=== PATIENT | male | born 1990 | race Caucasian/White ===

== ENCOUNTER 2017-01-21 23:19 | Emergency (ER) | payer BC ==
[~2017-01-21] VITALS: Ht 188 cm; Wt 110.0 kg
[2017-01-21 23:21] VITALS: BP 185/93; PULSE 86; RESP 20; TEMP 98.9; O2SAT 100
[2017-01-21 23:57] VITALS: BP 181/70; PULSE 64; RESP 16; O2SAT 96
[2017-01-22] MEDS ORDERED: NITROGLYCERIN 0.4 MG SL 25 TABS/BTL SL PRN (00:15)
[2017-01-22] MEDS ORDERED: ASPIRIN 81 MG CHEW TAB CHEW ONE (00:15)
[2017-01-22] MEDS ORDERED: SODIUM CHLOR 0.9% 1000 ML INJ 1,000 ML IV ONE ×2 (00:15→01:45)
[2017-01-22] MEDS ORDERED: NITROGLYCERIN 2% OINT 1 GM PACKET TOPICAL ONE (00:15)
[2017-01-22 00:31] LABS: AUTOMATED NEUTROPHIL # 3.3 TH/MM3 (1.8-7.7); BASOPHIL % 0.3 % (0.0-2.0); EOSINOPHIL # 0.3 TH/MM3 (0-0.4); HEMATOCRIT 42.7 % (39.0-51.0); HEMO FLAGS DIFF FINAL; LYMPH % 36.8 % (9.0-44.0); LYMPHOCYTE # 2.5 TH/MM3 (1.0-4.8); MEAN CELL VOLUME 82.2 FL (80.0-100.0); MEAN CORPUSCULAR HEMOGLOBIN 26.9 PG (27.0-34.0); MEAN CORPUSCULAR HGB CONC 32.8 % (32.0-36.0); MONO % 10.9 % (0.0-8.0); PLATELET COUNT 360 TH/MM3 (150-450); WHITE BLOOD COUNT 6.9 TH/MM3 (4.0-11.0)
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
[2017-01-22 00:40] LABS: ALT (GPT) 516 U/L (12-78); ANION GAP 5 MEQ/L (5-15); AST (GOT) 268 U/L (15-37); BICARBONATE 31.5 MEQ/L (21.0-32.0); BLOOD UREA NITROGEN 19 MG/DL (7-18); CHLORIDE 101 MEQ/L (98-107); GLOMERULAR FILTRATION RATE 59 ML/MIN (>89); MAGNESIUM 2.1 MG/DL (1.5-2.5); POTASSIUM 3.3 MEQ/L (3.5-5.1); SODIUM (NA) 137 MEQ/L (136-145)
--- NOTE | 2017-01-22 00:43 | RADRPT ---
EXAM DATE/TIME: 01/22/2017 00:23 [facility] COMPARISON: No previous studies available for comparison. INDICATIONS : Numbness and tingling to left leg x 1 day. MEDICAL HISTORY : NSTEMI SURGICAL HISTORY : None. ENCOUNTER: Initial ACUITY: 1 day PAIN SCORE: 6/10 LOCATION: Bilateral chest FINDINGS: A single view of the chest demonstrates the lungs to be symmetrically aerated without evidence of mas s, infiltrate or effusion. The cardiomediastinal contours are unremarkable. Osseous structures are intact. CONCLUSION: Normal examination. Luis Miguel France MD on January 22, 2017 at 0:42 Board Certified Radiologist. This report was verified electronically.
[2017-01-22 00:46] LABS: APTT (PATIENT) 28.3 SEC (24.3-30.1); PROTHROMBIN TIME - PATIENT 10.7 SEC (9.8-11.6)
[2017-01-22 00:54] LABS: ALKALINE PHOSPHATASE 91 U/L (45-117); CREATINE KINASE 1137 U/L (39-308); TOTAL BILIRUBIN ADULT 0.4 MG/DL (0.2-1.0)
[2017-01-22 01:06] LABS: CKMB 10.7 NG/ML (0.5-3.6)
[2017-01-22 01:37] LABS: BLOOD, URINE NEG (NEG); COMMENT (UR) CULT NOT INDICATED; CULTURE IF INDICATED CULT NOT INDICATED; GLUCOSE,URINE NEG (NEG); KETONE, URINE NEG (NEG); NITRITE,URINE NEG (NEG); PH, URINE 5.5 (5.0-8.5); URINE COLOR YELLOW (YELLW/STRAW)
[2017-01-22] MEDS ORDERED: POTASSIUM CHLORIDE 20 MEQ CONTROLLED RELEASE TAB PO ONE (01:45)
[2017-01-22] MEDS ORDERED: LEVO750T3 PO (02:13)
[2017-01-22] MEDS ORDERED: METO25TA3 PO (02:13)
[2017-01-22] MEDS ORDERED: CLIN1CAP6 PO (02:13)
--- NOTE | 2017-01-22 11:02 | EKG ---
Date Performed: 01/22/2017 Time Performed: 00:08:04 PTAGE: 26 years EKG: Sinus rhythm WITH SINUS ARRHYTHMIA NONSPECIFIC T-WAVE ABNORMALITY BORDERLINE ECG NO PREVIOUS TRACING DOCTOR: Jarrett Frazier Interpretating Date/Time 01/22/2017 10:58:50
== END 2017-01-22 03:21 | disposition home or self-care (01) ==
LOC: NEPE 23:19
DX: R07.9 Chest pain, unspecified (principal); R94.31 Abnormal electrocardiogram [ECG] [EKG]; R74.8 Abnormal levels of other serum enzymes; B19.20 Unspecified viral hepatitis C without hepatic coma; M62.82 Rhabdomyolysis; F14.90 Cocaine use, unspecified, uncomplicated; I10 Essential (primary) hypertension; F17.210 Nicotine dependence, cigarettes, uncomplicated; Z88.0 Allergy status to penicillin
CPT/HCPCS: 71010; 80053; 80307; 81001; 82550; 82552; 83735; 83880; 84443; 84484; 85025; 85379; 85610; 85730; 93005; 96360; 99285; J7030

== ENCOUNTER 2017-08-20 13:59 | Emergency (ER) | payer OTHER ==
[~2017-08-20] VITALS: Ht 188 cm; Wt 102.0 kg
[~2017-08-20 13:59] MED LIST: CLIN300C5 PO; LEVO750T3 PO; METO25TA3 PO
[2017-08-20 14:06] VITALS: BP 135/77; PULSE 100; RESP 16; TEMP 97.9; O2SAT 92
[2017-08-20] MEDS ORDERED: SODIUM CHLOR 0.9% 1000 ML INJ 1,000 ML IV ONE (14:27)
[2017-08-20] MEDS ORDERED: SODIUM CHLORIDE 0.9% FLUSH 10 ML FLUSH IVF PRN (14:30)
[2017-08-20] MEDS ORDERED: NALOXONE HCL 0.4 MG/ML AMP IV PUSH ONE (14:30)
[2017-08-20 15:25] LABS: BASOPHIL % 0.3 % (0.0-2.0); EOSINOPHIL # 0.3 TH/MM3 (0-0.4); EOSINOPHIL % 1.9 % (0.0-4.0); HEMATOCRIT 42.3 % (39.0-51.0); LYMPHOCYTE # 1.4 TH/MM3 (1.0-4.8); MEAN CELL VOLUME 82.6 FL (80.0-100.0); MEAN CORPUSCULAR HEMOGLOBIN 27.3 PG (27.0-34.0); MEAN CORPUSCULAR HGB CONC 33.1 % (32.0-36.0); MEAN PLATELET VOLUME 8.2 FL (7.0-11.0); MONO % 6.6 % (0.0-8.0); MONOCYTE # 0.9 TH/MM3 (0-0.9); NEUT % 81.2 % (16.0-70.0); PLATELET COUNT 221 TH/MM3 (150-450); RED BLOOD COUNT 5.13 MIL/MM3 (4.50-5.90); RED CELL DISTRIBUTION WIDTH 15.9 % (11.6-17.2); WHITE BLOOD COUNT 13.6 TH/MM3 (4.0-11.0)
[2017-08-20 15:34] VITALS: O2SAT 97
[2017-08-20 15:36] VITALS: BP 138/78; PULSE 98; RESP 18; O2SAT 97
[2017-08-20 15:38] LABS: ALBUMIN 3.4 GM/DL (3.4-5.0); ALT (GPT) 177 U/L (12-78); AST (GOT) 85 U/L (15-37); BICARBONATE 32.4 MEQ/L (21.0-32.0); BLOOD UREA NITROGEN 13 MG/DL (7-18); CALCIUM 8.6 MG/DL (8.5-10.1); CHLORIDE 101 MEQ/L (98-107); CREATININE 1.37 MG/DL (0.60-1.30); GLOMERULAR FILTRATION RATE 63 ML/MIN (>89); GLUCOSE,RANDOM 141 MG/DL (74-106); SODIUM (NA) 138 MEQ/L (136-145)
--- NOTE | 2017-08-20 15:39 | PD ---
HPI Chief Complaint: OD/ Ingestion Time Seen by Provider: 14:07 Travel History International Travel<30 days: No Contact w/Intl Traveler<30days: No Traveled to known affect area: No History of Present Illness HPI pt Is a 27 years old make and arrives by EMS. He was Found asleep in the bathroom somewhat cyanotic. He was given Narcan and awoke. His O2 sat was in the 80s initially. In the ER he states he used IV heroin. He reports intermittent success with attempts at stopping IV drug abuse. No suicidal or homicidal ideation. Onset sudden. Timing constant but increasing in severity. PFSH Past Medical History ?: Not Past Surgical History Other Surgery: Yes (LEFT HAND ) Social History Alcohol Use: Yes (occasional) Tobacco Use: Yes (1/2 PACK A DAY ) Substance Use: Yes (HERION) Allergies-Medications (Allergen,Severity, Reaction): Coded Allergies: penicillin G (Unverified Allergy, Severe, Anaphylaxis, 04/03/17) Reported Meds & Prescriptions Reported Meds & Active Scripts Active Narcan Nasal Primrose (Naloxone HCl) 4 Mg/Act Primrose 4 Mg NASAL ONCE PRN Contents of 1 nasal spray as a single dose; may repeat every 2 to 3 minutes in alternating nostrils until medical assistance becomes available. Review of Systems Except as stated in HPI: all other systems reviewed are Neg General / Constitutional: No: Fever Physical Exam Narrative GENERAL: 27-year-old male well-nourished well-developed no acute distress, slightly sleepy although cooperative and awake and interactive SKIN: Warm and dry. HEAD: Atraumatic. Normocephalic. EYES: Pupils equal and round. No scleral icterus. No injection or drainage. ENT: No nasal bleeding or discharge. Mucous membranes pink and moist. NECK: Trachea midline. No JVD. CARDIOVASCULAR: Regular rate and rhythm. RESPIRATORY: No accessory muscle use. Clear to auscultation. Breath sounds equal bilaterally. GASTROINTESTINAL: Abdomen soft, non-tender, nondistended. Hepatic and splenic margins not palpable. MUSCULOSKELETAL: Extremities without clubbing, cyanosis, or edema. No obvious deformities. NEUROLOGICAL: Awake and alert. No obvious cranial nerve deficits. Motor grossly within normal limits. Five out of 5 muscle strength in the arms and legs. Normal speech. PSYCHIATRIC: Appropriate mood and affect; insight and judgment normal. Data Data Last Documented VS Vital Signs Date Time Temp Pulse Resp B/P (MAP) Pulse Ox O2 Delivery O2 Flow Rate FiO2 08/20/17 16:32 08/20/17 15:36 98 18 97 Nasal Cannula 3.00 08/20/17 14:06 97.9 Vital Signs Date Time Temp Pulse Resp B/P (MAP) Pulse Ox O2 Delivery O2 Flow Rate FiO2 08/20/17 16:32 08/20/17 15:36 98 18 138/78 (98) 97 Nasal Cannula 3.00 08/20/17 15:34 97 Nasal Cannula 3.00 08/20/17 14:06 97.9 100 16 135/77 (96) 92 Orders Orders Complete Blood Count With Diff (08/20/17 14:27) Comprehensive Metabolic Panel (08/20/17 14:27) Iv Access Insert/Monitor (08/20/17 14:27) Ecg Monitoring (08/20/17 14:27) Oximetry (08/20/17 14:27) Psych Screen (08/20/17 14:27) Naloxone Inj (Narcan Inj) (08/20/17 14:30) Sodium Chloride 0.9% Flush (Ns Flush) (08/20/17 14:30) Sodium Chlor 0.9% 1000 Ml Inj (Ns 1000 M (08/20/17 14:27) Alcohol (Ethanol) (08/20/17 14:27) Ed Discharge Order (08/20/17 16:23) Labs Laboratory Tests Test 08/20/17 14:45 White Blood Count 13.6 TH/MM3 Red Blood Count 5.13 MIL/MM3 Hemoglobin 14.0 GM/DL Hematocrit 42.3 % Mean Corpuscular Volume 82.6 FL Mean Corpuscular Hemoglobin 27.3 PG Mean Corpuscular Hemoglobin Concent 33.1 % Red Cell Distribution Width 15.9 % Platelet Count 221 TH/MM3 Mean Platelet Volume 8.2 FL Neutrophils (%) (Auto) 81.2 % Lymphocytes (%) (Auto) 10.0 % Monocytes (%) (Auto) 6.6 % Eosinophils (%) (Auto) 1.9 % Basophils (%) (Auto) 0.3 % Neutrophils # (Auto) 11.0 TH/MM3 Lymphocytes # (Auto) 1.4 TH/MM3 Monocytes # (Auto) 0.9 TH/MM3 Eosinophils # (Auto) 0.3 TH/MM3 Basophils # (Auto) 0.0 TH/MM3 CBC Comment DIFF FINAL Differential Comment Blood Urea Nitrogen 13 MG/DL Creatinine 1.37 MG/DL Random Glucose 141 MG/DL Total Protein 7.2 GM/DL Albumin 3.4 GM/DL Calcium Level 8.6 MG/DL Alkaline Phosphatase 168 U/L Aspartate Amino Transf (AST/SGOT) 85 U/L Alanine Aminotransferase (ALT/SGPT) 177 U/L Total Bilirubin 0.4 MG/DL Sodium Level 138 MEQ/L Potassium Level 3.8 MEQ/L Chloride Level 101 MEQ/L Carbon Dioxide Level 32.4 MEQ/L Anion Gap 5 MEQ/L Estimat Glomerular Filtration Rate 63 ML/MIN Ethyl Alcohol Level LESS THAN 3 MG/DL [facility] Medical Decision Making Medical Screen Exam Complete: Yes Emergency Medical Condition: Yes Medical Record Reviewed: Yes Differential Diagnosis IVDU OD, heroine overdose, PSA, SI Narrative Course CBC & BMP Diagram 08/20/17 14:45 Total Protein 7.2, Albumin 3.4, Calcium Level 8.6, Alkaline Phosphatase 168 H, Aspartate Amino Transf (AST/SGOT) 85 H, Alanine Aminotransferase (ALT/SGPT) 177 H, Total Bilirubin 0.4 Pt observed here for 2 hours. VS have remained normal. NO narcan required in ED Pt counseled in some length and demonstrates insight into risks of his current behavior Pt ok for discharge home. Diagnosis Primary Impression: Intravenous drug abuse Additional Impression: Overdose Qualified Codes: T50.901A - Poisoning by unspecified drugs, medicaments and biological substances, accidental (unintentional), initial encounter Referrals: [facility]Other Pt SpecificInfo: Prescription(s) given Scripts Naloxone Nasal Primrose (Narcan Nasal Primrose) 4 Mg/Act Primrose 4 MG NASAL ONCE Y for OPIOID OVERDOSE, #1 SPRAY 0 Refills Contents of 1 nasal spray as a single dose; may repeat every 2 to 3 minutes in alternating nostrils until medical assistance becomes available. Prov: Ian Peoples MD 08/20/17 Disposition: 01 DISCHARGE HOME Condition: Stable Ian Peoples MD Aug 20, 2017 15:38
[2017-08-20 15:40] LABS: ALKALINE PHOSPHATASE 168 U/L (45-117); TOTAL BILIRUBIN ADULT 0.4 MG/DL (0.2-1.0); TOTAL PROTEIN 7.2 GM/DL (6.4-8.2)
[2017-08-20] MEDS ORDERED: NALO1SPR NASAL (16:24)
== END 2017-08-20 16:45 | disposition home or self-care (01) ==
LOC: NEPD 13:59
DX: T40.1X1A Poisoning by heroin, accidental (unintentional), initial encounter (principal); F17.200 Nicotine dependence, unspecified, uncomplicated; Z88.0 Allergy status to penicillin; Z79.899 Other long term (current) drug therapy
CPT/HCPCS: 80053; 80307; 85025; 96374; 99282; J2310; J7030

== ENCOUNTER 2017-08-23 16:31 | Emergency (ER) | payer BC ==
[~2017-08-23] VITALS: Ht 188 cm; Wt 104.0 kg
[~2017-08-23 16:31] MED LIST changes: -CLIN300C5 PO; -LEVO750T3 PO; -METO25TA3 PO; +NALO1SPR NASAL
[2017-08-23 16:39] VITALS: BP 161/69; PULSE 82; RESP 16; TEMP 97.6; O2SAT 97
--- NOTE | 2017-08-23 17:22 | PD ---
HPI Chief Complaint: Skin Problem Time Seen by Provider: 16:51 Travel History International Travel<30 days: No Contact w/Intl Traveler<30days: No Traveled to known affect area: No History of Present Illness HPI 27-year-old right-hand dominant male with history of IVDA presents to the ED for evaluation of one week history of multiple small wounds with localized redness. The patient states that he first noticed it on the left foot, between the fourth and fifth toes. He states he was treating with antifungals with no improvement of symptoms. He then states that last week he noticed 2 small wounds opening on his right index finger. 2 days ago he noted redness around the hairline that has become "hard to the touch." He denies fever, chills, nausea, vomiting, history of MRSA. He denies squeezing the area. [facility] Past Medical History Medical History: Denies Significant Hx Past Surgical History Other Surgery: Yes (LEFT HAND ) Social History Alcohol Use: Yes (occasional) Tobacco Use: Yes (1/2 PACK A DAY ) Substance Use: Yes (HEROIN) Allergies-Medications (Allergen,Severity, Reaction): Coded Allergies: penicillin G (Unverified Allergy, Severe, Anaphylaxis, 08/23/17) Reported Meds & Prescriptions Reported Meds & Active Scripts Active Bactrim DS (Sulfamethoxazole-Trimethoprim) 800-160 Mg Tab 1 Tab PO BID Lotrimin AF Topical Powder (Miconazole Topical Powder) 2 % Pow 1 Applic TOPICAL BID 14 Days Narcan Nasal [place] (Naloxone HCl) 4 Mg/Act [place] 4 Mg NASAL ONCE PRN Contents of 1 nasal spray as a single dose; may repeat every 2 to 3 minutes in alternating nostrils until medical assistance becomes available. Review of Systems Except as stated in HPI: all other systems reviewed are Neg Physical Exam Narrative GENERAL: Well-nourished, well-developed white male in no acute distress. SKIN: Focused skin assessment warm/dry. Left foot: Desquamated skin between the fourth and fifth digits. 2 subcentimeter crusts with out signs of infection. Right hand: 2 subcentimeter crusts on the dorsal surface of the right index finger with localized erythema. Posterior hairline: Multiple areas of erythema consistent with folliculitis. There is an indurated area in the hairline of the left posterior neck which measures about 1 cm in diameter no fluctuance, pointing or drainage. There is a zone of inflammation around it but no lymphangitis. HEAD: Normocephalic. EYES: No scleral icterus. No injection or drainage. NECK: Supple, trachea midline. No JVD or lymphadenopathy. CARDIOVASCULAR: Regular rate and rhythm without murmurs, gallops, or rubs. RESPIRATORY: Breath sounds equal bilaterally. No accessory muscle use. GASTROINTESTINAL: Abdomen soft, non-tender, nondistended. MUSCULOSKELETAL: No cyanosis, or edema. FOCUSED LEFT LOWER EXTREMITY EXAM: 2+ DP pulse. Patient retains full, active, painless ROM of the digits of the foot. Neurovascularly intact distally. FOCUSED RIGHT UPPER EXTREMITY EXAM: 2+ radial pulse. Patient retains full, active, painless ROM of the index finger. Strong finger to thumb opposition. Neurovascularly intact distally. BACK: Nontender without obvious deformity. No CVA tenderness. Data Data Last Documented VS Vital Signs Date Time Temp Pulse Resp B/P (MAP) Pulse Ox O2 Delivery O2 Flow Rate FiO2 08/23/17 16:39 97.6 82 16 161/69 (99) 97 Orders Orders Ed Discharge Order (08/23/17 17:27) [facility] Medical Decision Making Medical Screen Exam Complete: Yes Emergency Medical Condition: Yes Differential Diagnosis Tinea pedis versus trench foot versus folliculitis versus abscess versus cellulitis versus other Narrative Course 27-year-old right-hand dominant male with history of IVDA presents to the ED for evaluation of one week history of multiple small wounds with localized redness. The patient states that he first noticed it on the left foot, between the fourth and fifth toes. He states he was treating with antifungals with no improvement of symptoms. He then states that last week he noticed 2 small wounds opening on his right index finger. 2 days ago he noted redness around the hairline that has become "hard to the touch." Vitals reviewed. Physical exam reveals tinea pedis of the fourth and fifth digit with secondary infection , likely staph. Also suspect 2 small abscesses of the posterior hairline, no fluctuance noted. Will treat for tinea pedis and secondary infection with Bactrim DS and miconazole powder. Patient is instructed to take every antibiotic until every pill is gone, keep the foot clean and dry, return for worsening symptoms. He indicated understanding of the instructions and is agreeable to the care plan. He is stable and discharged home. Diagnosis Primary Impression: Tinea pedis of left foot Additional Impressions: Folliculitis Abscess Referrals: [facility] Patient Instructions: Abscess (ED), General Instructions, Tinea Pedis (DC) Additional Instructions: Rest, hydrate. Keep the affected foot clean and dry. Change socks multiple times during the day. Pat the area dry after showering and expose it to air as much as possible. Use miconazole powder as prescribed. Warm compresses or hot showers on the back of the neck will help to open the area of abscess. Do not squeeze that area as it can drive the infection deeper. Take all antibiotics as they're prescribed until every pill is gone. Follow-up with the [facility]. Return to the ED for worsening symptoms or any urgent or emergent medical condition. Med/Other Pt SpecificInfo: Prescription(s) given Scripts Sulfamethoxazole-Trimethoprim (Bactrim DS) 800-160 Mg Tab 1 TAB PO BID for Infection, #14 TAB 0 Refills Prov: Merrill Cooper MD 08/23/17 Miconazole Topical Powder (Lotrimin AF Topical Powder) 2 % Pow 1 APPLIC TOPICAL BID for Fungal Infection for 14 Days, CAN 0 Refills Prov: Merrill Cooper MD 08/23/17 Disposition: 01 DISCHARGE HOME Condition: Stable Kerrie Claros Aug 23, 2017 17:22
[2017-08-23] MEDS ORDERED: MICO1POW7 TOPICAL (17:26)
[2017-08-23] MEDS ORDERED: BACT800T5 PO (17:26)
== END 2017-08-23 17:40 | disposition home or self-care (01) ==
LOC: PHEFT 16:31
DX: B35.3 Tinea pedis (principal); L73.9 Follicular disorder, unspecified; L02.612 Cutaneous abscess of left foot; F17.200 Nicotine dependence, unspecified, uncomplicated; Z88.0 Allergy status to penicillin; Z79.899 Other long term (current) drug therapy
CPT/HCPCS: 99284

== ENCOUNTER 2017-09-04 00:08 | Emergency (ER) | payer BC ==
[~2017-09-04] VITALS: Ht 188 cm; Wt 102.8 kg
[~2017-09-04 00:08] MED LIST changes: +BACT800T5 PO; +MICO1POW7 TOPICAL
[2017-09-04 00:14] VITALS: BP 169/72; PULSE 81; RESP 20; TEMP 98.9; O2SAT 99
[2017-09-04] MEDS ORDERED: SULFAMETHOXAZOLE-TRIMETHOPRIM DS 800-160 MG TAB PO ONE (00:45)
[2017-09-04] MEDS ORDERED: CLINDAMYCIN 150 MG CAP PO ONE (00:45)
[2017-09-04] MEDS ORDERED: CLIN150C14 PO (00:50)
[2017-09-04] MEDS ORDERED: BACT800T5 PO (00:50)
[2017-09-04] MEDS ORDERED: MUPI2%T TOPICAL (00:50)
--- NOTE | 2017-09-04 00:54 | PD ---
HPI . Lump cyst Chief Complaint: Lump, Cyst, Hernia Time Seen by Provider: 00:54 Travel History International Travel<30 days: No Contact w/Intl Traveler<30days: No Traveled to known affect area: No History of Present Illness HPI 27-year-old male with cluster of firm indurated follicles at the base of the neck on the left. Patient has been trying to express drainage from the sites. Patient rates his pain 6/10 in intensity. Patient is noted symptoms developing over the last 5 days. Patient's had no fever no chills. Patient is not diabetic. Patient has used ibuprofen 800 mg 2 doses over the past few days for symptom relief. Due to persistence he is very for all that this will spread or get worse therefore finally decided to come to the emergency room. Patient denies prior history of MRSA infection. [facility] Past Medical History Narrative Medical Left hand surgery; alcohol use tobacco use substance use; nursing notes reviewed Past Surgical History Other Surgery: Yes (LEFT HAND ) Social History Alcohol Use: Yes (occasional) Tobacco Use: Yes (1/2 PACK A DAY ) Substance Use: Yes (HEROIN) Allergies-Medications (Allergen,Severity, Reaction): Coded Allergies: penicillin G (Verified Allergy, Severe, Anaphylaxis, 09/04/17) Reported Meds & Prescriptions Reported Meds & Active Scripts Active Bactroban Topical (Mupirocin) 22 Gm Cream 1 Applic TOPICAL BID Clindamycin (Clindamycin HCl) 150 Mg Cap 300 Mg PO Q6H 7 Days Bactrim DS (Sulfamethoxazole-Trimethoprim) 800-160 Mg Tab 1 Tab PO BID Bactrim DS (Sulfamethoxazole-Trimethoprim) 800-160 Mg Tab 1 Tab PO BID Lotrimin AF Topical Powder (Miconazole Topical Powder) 2 % Pow 1 Applic TOPICAL BID 14 Days Narcan Nasal [place] (Naloxone HCl) 4 Mg/Act [place] 4 Mg NASAL ONCE PRN Contents of 1 nasal spray as a single dose; may repeat every 2 to 3 minutes in alternating nostrils until medical assistance becomes available. Review of Systems Except as stated in HPI: all other systems reviewed are Neg General / Constitutional: No: Fever, Chills HENT: No: Congestion Cardiovascular: No: Chest Pain or Discomfort Respiratory: No: Shortness of Breath Gastrointestinal: No: Nausea, Vomiting, Abdominal Pain Musculoskeletal: No: Myalgias, Arthralgias Skin: Positive Rash, Positive Lumps Neurologic: No: Weakness Psychiatric: Positive: Substance Abuse, No: Anxiety Hematologic/Lymphatic: Positive: Lymph Node Enlargement Physical Exam Narrative GENERAL: Well-developed well-nourished male in no acute distress respiratory distress SKIN: Warm and dry. Multiple pinpoint pustules at hair follicles sites over the posterior lower scalp where patient shaves his head. HEAD: Normocephalic. EYES: No scleral icterus. No injection or drainage. NECK: Supple, trachea midline. No JVD or lymphadenopathy. Attention left posterior neck area of firm nonfluctuant induration 5 cm x 2.5 cm with multiple pinpoint pustules and central area of excoriation without area of fluctuance or pointing, tenderness to palpation. Posterior cervical chain lymphadenopathy. No decreased range of motion of neck on rotation flexion or extension. No meningismus. Data Data Last Documented VS Vital Signs Date Time Temp Pulse Resp B/P (MAP) Pulse Ox O2 Delivery O2 Flow Rate FiO2 09/04/17 00:14 98.9 81 20 169/72 (104) 99 Orders Orders Sulfamet-Trimeth Ds 800-160 Mg (Bactrim (09/04/17 00:45) Clindamycin (Cleocin) (09/04/17 00:45) Ed Discharge Order (09/04/17 00:54) MDM Medical Decision Making Medical Screen Exam Complete: Yes Emergency Medical Condition: Yes Medical Record Reviewed: Yes Differential Diagnosis Cellulitis, folliculitis, abscess, carbuncle, furuncle, hidradenitis suppurativa Narrative Course patient with cluster of pinpoint pustules without central or focal fluctuance stranded by firm induration; at this time patient is not a candidate for incision and drainage; patient will be given first dose of Bactrim and clindamycin as his after 12 AM and pharmacies are not open and then will receive a prescription for Bactroban clindamycin and Bactrim. Patient is encouraged to return 48 hours in order to hopefully this site will be amenable to incision and drainage. Diagnosis Primary Impression: Furuncle of neck Referrals: [facility] as needed Patient Instructions: General Instructions Additional Instructions: Complete course of antibiotic as prescribed Apply warm compresses intermittently do not apply hot compresses in order to avoid burning the skin May continue to use ibuprofen 800 mg as often as every 8 hours do not use this dose of medication any more frequently than every 8 hours May also use acetaminophen/Tylenol every 4-6 hours as needed for fever 100.4F or greater or for minor pain Return to the emergency department for reassessment and possible incision and drainage as needed 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
== END 2017-09-04 01:22 | disposition home or self-care (01) ==
LOC: PHED 00:08
DX: L02.12 Furuncle of neck (principal); F17.210 Nicotine dependence, cigarettes, uncomplicated
CPT/HCPCS: 99284

== ENCOUNTER 2017-10-28 11:11 | Emergency (ER) | payer SELFPAY ==
[~2017-10-28] VITALS: Ht 182.9 cm; Wt 80.0 kg
[~2017-10-28 11:11] MED LIST changes: +CLIN150C14 PO; +MUPI2%T TOPICAL
[2017-10-28 11:33] VITALS: BP 176/82; PULSE 123; RESP 26; TEMP 98.9; O2SAT 99
[2017-10-28] MEDS ORDERED: LORazepam 2 MG/ML VIAL IV PUSH ONE ×2 (11:45→12:00)
[2017-10-28] MEDS ORDERED: HALOPERIDOL LACTATE 5 MG/ML AMP IM ONE (11:45)
[2017-10-28] MEDS ORDERED: SODIUM CHLOR 0.9% 1000 ML INJ 1,000 ML IV ONE ×2 (12:00)
[2017-10-28 12:04] VITALS: BP 116/59; PULSE 112; RESP 20; O2SAT 99
[2017-10-28 12:11] LABS: AUTOMATED NEUTROPHIL # 4.7 TH/MM3 (1.8-7.7); BASOPHIL % 0.5 % (0.0-2.0); EOSINOPHIL # 0.2 TH/MM3 (0-0.4); EOSINOPHIL % 2.3 % (0.0-4.0); HEMATOCRIT 40.1 % (39.0-51.0); HEMOGLOBIN 13.4 GM/DL (13.0-17.0); LYMPH % 17.8 % (9.0-44.0); LYMPHOCYTE # 1.3 TH/MM3 (1.0-4.8); MEAN CELL VOLUME 80.5 FL (80.0-100.0); MEAN CORPUSCULAR HGB CONC 33.5 % (32.0-36.0); MEAN PLATELET VOLUME 8.2 FL (7.0-11.0); MONO % 12.4 % (0.0-8.0); MONOCYTE # 0.9 TH/MM3 (0-0.9); PLATELET COUNT 220 TH/MM3 (150-450); RED BLOOD COUNT 4.98 MIL/MM3 (4.50-5.90); RED CELL DISTRIBUTION WIDTH 14.7 % (11.6-17.2)
[2017-10-28 12:40] VITALS: BP 123/56; PULSE 78; RESP 18; O2SAT 99
[2017-10-28 12:42] LABS: ALBUMIN 4.1 GM/DL (3.4-5.0); AST (GOT) 72 U/L (15-37); BICARBONATE 25.8 MEQ/L (21.0-32.0); BLOOD UREA NITROGEN 18 MG/DL (7-18); CALCIUM 9.5 MG/DL (8.5-10.1); CHLORIDE 102 MEQ/L (98-107); CREATININE 1.61 MG/DL (0.60-1.30); GLOMERULAR FILTRATION RATE 53 ML/MIN (>89); GLUCOSE,RANDOM 114 MG/DL (74-106); SODIUM (NA) 139 MEQ/L (136-145)
[2017-10-28 12:43] LABS: ALT (GPT) 125 U/L (12-78)
[2017-10-28 12:45] LABS: ACETAMINOPHEN LESS THAN 2.0 MCG/ML (10.0-30.0); ALKALINE PHOSPHATASE 81 U/L (45-117); TOTAL BILIRUBIN ADULT 0.6 MG/DL (0.2-1.0); TOTAL PROTEIN 7.5 GM/DL (6.4-8.2)
--- NOTE | 2017-10-28 13:31 | PD ---
HPI Chief Complaint: OD/ Ingestion Time Seen by Provider: 11:33 Travel History International Travel<30 days: No Contact w/Intl Traveler<30days: No Traveled to known affect area: No History of Present Illness HPI 27-year-old male arrives to the ER as a [place]. The patient was found in a hotel room where he had locked the door and evidently destroyed the contents of the room. Forced entry was required in order to provide medical care. Initially the patient refused medical personnel to treat him. Evidently he reported first responders intended to harm him. In the ER he repeatedly states "I do not want to ." History is therefore limited. Upon arrival to the [facility] the patient required four-point locked restraints and chemical sedation. [facility] Past Medical History Medical History: Unable to Obtain ?: Not Past Surgical History Other Surgery: Yes (LEFT HAND ) Social History Alcohol Use: Yes (occasional) Tobacco Use: Yes (1/2 PACK A DAY ) Substance Use: Yes (HEROIN) Allergies-Medications (Allergen,Severity, Reaction): Coded Allergies: penicillin G (Verified Allergy, Severe, Anaphylaxis, 09/04/17) Reported Meds & Prescriptions Reported Meds & Active Scripts Active Review of Systems ROS Limitations: Intoxication, Altered Mental Status Physical Exam Narrative GENERAL: Agitated 27-year-old male well-nourished well-developed Vital Signs Date Time Temp Pulse Resp B/P (MAP) Pulse Ox O2 Delivery O2 Flow Rate FiO2 10/28/17 12:40 78 18 123/56 (78) 99 Room Air 10/28/17 12:04 112 20 116/59 (78) 99 Room Air 10/28/17 11:39 116 10/28/17 11:33 98.9 123 26 176/82 (113) 99 SKIN: Warm and dry. HEAD: Atraumatic. Normocephalic. EYES: Pupils equal and round. No scleral icterus. No injection or drainage. ENT: No nasal bleeding or discharge. Mucous membranes pink and moist. NECK: Trachea midline. No JVD. CARDIOVASCULAR: Tachycardia. Regular rhythm. RESPIRATORY: Breath sounds are clear. The patient is speaking in full sentences. GASTROINTESTINAL: Abdomen soft, non-tender, nondistended. Hepatic and splenic margins not palpable. MUSCULOSKELETAL: Extremities without clubbing, cyanosis, or edema. No obvious deformities. NEUROLOGICAL: Awake and alert. No obvious cranial nerve deficits. Motor grossly within normal limits. Five out of 5 muscle strength in the arms and legs. Normal speech. PSYCHIATRIC: Agitated. Paranoid. Combative. Data Data Last Documented VS Vital Signs Date Time Temp Pulse Resp B/P (MAP) Pulse Ox O2 Delivery O2 Flow Rate FiO2 10/28/17 13:32 50 18 124/58 (80) 99 Room Air 10/28/17 11:33 98.9 Orders Orders Complete Blood Count With Diff (10/28/17 11:34) Comprehensive Metabolic Panel (10/28/17 11:34) Oximetry (10/28/17 11:34) Iv Access Insert/Monitor (10/28/17 11:34) Ecg Monitoring (10/28/17 11:34) Oxygen Administration (10/28/17 11:34) Cath For Specimen (10/28/17 11:34) Psych Screen (10/28/17 11:34) Haloperidol Inj (Haldol Inj) (10/28/17 11:45) Lorazepam Inj (Ativan Inj) (10/28/17 11:45) Restraints Violent (10/28/17 11:34) Drug Screen, Random Urine (10/28/17 11:34) Alcohol (Ethanol) (10/28/17 11:34) Salicylates (Aspirin) (10/28/17 11:34) Tylenol (Acetaminophen) (10/28/17 11:34) Sodium Chlor 0.9% 1000 Ml Inj (Ns 1000 M (10/28/17 12:00) Sodium Chlor 0.9% 1000 Ml Inj (Ns 1000 M (10/28/17 12:00) Creatine Kinase (Cpk) (10/28/17 11:56) Lorazepam Inj (Ativan Inj) (10/28/17 12:00) CKMB (10/28/17 11:55) CKMB% (10/28/17 11:55) Labs Laboratory Tests Test 10/28/17 11:55 10/28/17 12:52 White Blood Count 7.0 TH/MM3 Red Blood Count 4.98 MIL/MM3 Hemoglobin 13.4 GM/DL Hematocrit 40.1 % Mean Corpuscular Volume 80.5 FL Mean Corpuscular Hemoglobin 27.0 PG Mean Corpuscular Hemoglobin Concent 33.5 % Red Cell Distribution Width 14.7 % Platelet Count 220 TH/MM3 Mean Platelet Volume 8.2 FL Neutrophils (%) (Auto) 67.0 % Lymphocytes (%) (Auto) 17.8 % Monocytes (%) (Auto) 12.4 % Eosinophils (%) (Auto) 2.3 % Basophils (%) (Auto) 0.5 % Neutrophils # (Auto) 4.7 TH/MM3 Lymphocytes # (Auto) 1.3 TH/MM3 Monocytes # (Auto) 0.9 TH/MM3 Eosinophils # (Auto) 0.2 TH/MM3 Basophils # (Auto) 0.0 TH/MM3 CBC Comment DIFF FINAL Differential Comment Blood Urea Nitrogen 18 MG/DL Creatinine 1.61 MG/DL Random Glucose 114 MG/DL Total Protein 7.5 GM/DL Albumin 4.1 GM/DL Calcium Level 9.5 MG/DL Alkaline Phosphatase 81 U/L Aspartate Amino Transf (AST/SGOT) 72 U/L Alanine Aminotransferase (ALT/SGPT) 125 U/L Total Bilirubin 0.6 MG/DL Sodium Level 139 MEQ/L Potassium Level 3.2 MEQ/L Chloride Level 102 MEQ/L Carbon Dioxide Level 25.8 MEQ/L Anion Gap 11 MEQ/L Estimat Glomerular Filtration Rate 53 ML/MIN Total Creatine Kinase 648 U/L Creatine Kinase MB 6.5 NG/ML Creatine Kinase MB % 1.0 % Salicylates Level LESS THAN 1.7 MG/DL Acetaminophen Level LESS THAN 2.0 MCG/ML Ethyl Alcohol Level LESS THAN 3 MG/DL Urine Opiates Screen POS Urine Barbiturates Screen NEG Urine Amphetamines Screen POS Urine Benzodiazepines Screen POS Urine Cocaine Screen POS Urine Cannabinoids Screen NEG MDM Medical Decision Making Medical Screen Exam Complete: Yes Emergency Medical Condition: Yes Medical Record Reviewed: Yes Differential Diagnosis Altered mental status/psychosis due to infection/environmental exposure/ metabolic abnormality, polypharmacy, alcohol abuse/intoxication, illicit or prescribed drug abuse, malingering/secondary gain, non-organic psychiatric disease Narrative Course CBC & BMP Diagram 10/28/17 11:55 Total Protein 7.5, Albumin 4.1, Calcium Level 9.5, Alkaline Phosphatase 81, Aspartate Amino Transf (AST/SGOT) 72 H, Alanine Aminotransferase (ALT/SGPT) 125 H, Total Bilirubin 0.6 2L NS transfused UTOX positive for opiates, amphetamines, cocaine and benzo Pt medically clear f or psychaitric evaluation Diagnosis Primary Impression: Cocaine use Additional Impressions: Opiate use Amphetamine abuse Benzodiazepine abuse Psychosis Qualified Codes: F20.9 - Schizophrenia, unspecified Hypokalemia Transaminitis Admitting Information Admitting Physician Requests: Observation Ian Peoples MD Oct 28, 2017 13:31
[2017-10-28 13:32] VITALS: BP 124/58; PULSE 50; RESP 18; O2SAT 99
[2017-10-28 16:39] VITALS: BP 132/62; PULSE 56; RESP 16; O2SAT 98
[2017-10-28 19:56] VITALS: BP 136/71; PULSE 66; RESP 16; TEMP 98.6; O2SAT 100
== END 2017-10-29 03:25 ==
LOC: NEPD 11:11 → NEPJ 10-29 03:25
DX: F14.90 Cocaine use, unspecified, uncomplicated (principal); F15.10 Other stimulant abuse, uncomplicated; F13.10 Sedative, hypnotic or anxiolytic abuse, uncomplicated; F17.200 Nicotine dependence, unspecified, uncomplicated; F20.9 Schizophrenia, unspecified; E87.6 Hypokalemia
CPT/HCPCS: 80053; 80307; 82550; 82552; 85025; 96361; 96372; 96374; 96375; 99285; J1630; J2060; J7030

== ENCOUNTER 2017-12-13 21:30 | Emergency (ER) | payer SELFPAY ==
[~2017-12-13] VITALS: Ht 188 cm; Wt 95.8 kg
[2017-12-13 21:34] VITALS: BP 163/72; PULSE 75; RESP 16; TEMP 98.4; O2SAT 98
--- NOTE | 2017-12-13 22:25 | RADRPT ---
EXAM DATE/TIME: 12/13/2017 22:12 [place] COMPARISON: No previous studies available for comparison. INDICATIONS : Woke up with pain in left shoulder after sleeping with arms above head. MEDICAL HISTORY : None. SURGICAL HISTORY : None. ENCOUNTER: Initial ACUITY: 1 day PAIN SCORE: 10/10 LOCATION: Left Shoulder FINDINGS: There is no fracture or subluxation of the left shoulder. No perceptible arthropathy. There is patchy calcification in the subacromial space, but appears to mostly be in the region of dis jose alejandro infraspinatus. CONCLUSION: Intact left shoulder. Calcific tendinitis/bursitis focally of the distal cuff. Beck Salazar MD on December 13, 2017 at 22:21 Board Certified Radiologist. This report was verified electronically.
--- NOTE | 2017-12-13 22:38 | PD ---
HPI Chief Complaint: Musculoskeletal Complaint Time Seen by Provider: 22:01 Travel History International Travel<30 days: No Contact w/Intl Traveler<30days: No Traveled to known affect area: No History of Present Illness HPI The patient's 27 years old. He complains of pain in the left shoulder. He denies injury. Range of motion from the elbow distally is intact. Abduction of the shoulder is limited due to pain. He has no fever. He denies numbness tingling weakness in the left upper extremity. Duration is been about 2 days. PFSH Past Medical History Cardiovascular Problems: Yes (ENDOCARDITIS) Diminished Hearing: No Immunizations Current: Yes Tetanus Vaccination: < 5 Years Influenza Vaccination: No Past Surgical History Other Surgery: Yes (LEFT HAND ) Social History Alcohol Use: Yes (occasional) Tobacco Use: Yes (1/2 PACK A DAY ) Substance Use: Yes (HEROIN, PSA) Allergies-Medications (Allergen,Severity, Reaction): Coded Allergies: penicillin G (Verified Allergy, Severe, Anaphylaxis, 12/13/17) Reported Meds & Prescriptions Reported Meds & Active Scripts Active Ibuprofen 800 Mg Tab 800 Mg PO Q8H PRN Review of Systems Except as stated in HPI: all other systems reviewed are Neg General / Constitutional: No: Fever Eyes: No: Photophobia Physical Exam Narrative GENERAL: 27-year-old male well-nourished well-developed no acute distress Vital Signs Date Time Temp Pulse Resp B/P (MAP) Pulse Ox O2 Delivery O2 Flow Rate FiO2 12/13/17 21:34 98.4 75 16 163/72 (102) 98 SKIN: Warm and dry. HEAD: Atraumatic. Normocephalic. EYES: Pupils equal and round. No scleral icterus. No injection or drainage. ENT: No nasal bleeding or discharge. Mucous membranes pink and moist. NECK: Trachea midline. No JVD. CARDIOVASCULAR: Regular rate and rhythm. RESPIRATORY: No accessory muscle use. Clear to auscultation. Breath sounds equal bilaterally. GASTROINTESTINAL: Abdomen soft, non-tender, nondistended. Hepatic and splenic margins not palpable. MUSCULOSKELETAL: Abduction and flexion extension of the elbow is limited due to pain with active range of motion. 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 2+ regular pulses bilaterally. No gross deformity. NEUROLOGICAL: Awake and alert. No obvious cranial nerve deficits. Motor grossly within normal limits. Five out of 5 muscle strength in the arms and legs. Normal speech. PSYCHIATRIC: Appropriate mood and affect; insight and judgment normal. Data Data Last Documented VS Vital Signs Date Time Temp Pulse Resp B/P (MAP) Pulse Ox O2 Delivery O2 Flow Rate FiO2 12/13/17 21:34 98.4 75 16 163/72 (102) 98 Orders Orders Shoulder, Complete (>2vws) (12/13/17 ) Ketorolac Inj (Toradol Inj) (12/13/17 23:30) ^ Sling (12/13/17 23:22) Ed Discharge Order (12/13/17 23:32) Mandatory Outpatient Referral (12/13/17 23:32) [facility] Medical Decision Making Medical Screen Exam Complete: Yes Emergency Medical Condition: Yes Medical Record Reviewed: Yes Differential Diagnosis septic arthritis, strain, rotator cuff injury, calcific tendinitis, calcific bursitis Narrative Course Last Impressions Shoulder X-Ray 12/13/17 0000 Signed Impressions: Service Date/Time: November 22:12 - CONCLUSION: Intact left shoulder. Calcific tendinitis/bursitis focally of the distal cuff. Beck Salazar MD Been controlled. Sling. Toradol. Ibuprofen. Follow-up with ortho. Mandatory referral order placed. Diagnosis Primary Impression: Calcific bursitis of shoulder Additional Impression: Calcific tendonitis Referrals: Arturo Rubalcava MD call for appointment Med/Other Pt SpecificInfo: Prescription(s) given Scripts Ibuprofen (Ibuprofen) 800 Mg Tab 800 MG PO Q8H Y for PAIN SCALE 6 TO 10, #60 TAB 0 Refills Prov: Ian Peoples MD 12/13/17 Disposition: 01 DISCHARGE HOME Condition: Stable Ian Peoples MD Dec 13, 2017 22:38
[2017-12-13] MEDS ORDERED: IBUP1TAB7 PO (23:13)
[2017-12-13] MEDS ORDERED: KETOROLAC TROMETHAMINE 60 MG/2 ML (IM) VIAL IM ONE (23:30)
[2017-12-14 00:10] VITALS: BP 142/75
== END 2017-12-14 00:12 | disposition home or self-care (01) ==
LOC: PHED 21:30
DX: M75.52 Bursitis of left shoulder (principal); F11.10 Opioid abuse, uncomplicated; F17.200 Nicotine dependence, unspecified, uncomplicated; Z88.0 Allergy status to penicillin
CPT/HCPCS: 73030; 96372; 99283; J1885

== ENCOUNTER 2018-01-02 09:48 | Emergency (ER) | payer BC ==
[2018-01-02] VITALS (11 sets, daily range): BP systolic 113–180; BP diastolic 51–83; PULSE 79–95; RESP 16–20; TEMP 97.3; O2SAT 93–98
[~2018-01-02] VITALS: Ht 188 cm; Wt 102.0 kg
[~2018-01-02 09:48] MED LIST changes: -BACT800T5 PO; -CLIN150C14 PO; +IBUP1TAB7 PO; -MICO1POW7 TOPICAL; -MUPI2%T TOPICAL; -NALO1SPR NASAL
--- NOTE | 2018-01-02 09:56 | PD ---
HPI Chief Complaint: OD/ Ingestion Time Seen by Provider: 09:53 Travel History International Travel<30 days: No Contact w/Intl Traveler<30days: No Traveled to known affect area: No History of Present Illness HPI This 27-year-old male is brought by his girlfriend for evaluation of altered mental status. He says he was away most of the night. He got home around 7:00 this morning after being at a friend's house libertarian. He says he was not acting quite right hip asking him what was wrong and he would not answer. He was up and talking. He says that this persisted in fact he seemed to get a little more confused this time a month. He has a history of intravenous drug abuse. He has been in and out of rehab. is girlfriend is not aware of what he is doing most recently. The patient himself will not answer questions PFSH Past Medical History Cardiovascular Problems: Yes (ENDOCARDITIS) Diminished Hearing: No Immunizations Current: Yes Past Surgical History Other Surgery: Yes (LEFT HAND ) Social History Alcohol Use: Yes (occasional) Tobacco Use: Yes (1/2 PACK A DAY ) Substance Use: Yes (HEROIN, PSA) Allergies-Medications (Allergen,Severity, Reaction): Coded Allergies: penicillin G (Verified Allergy, Severe, Anaphylaxis, 12/13/17) Reported Meds & Prescriptions Reported Meds & Active Scripts Active No Active Prescriptions or Reported Medications Review of Systems ROS Limitations: Altered Mental Status Physical Exam Narrative GENERAL: Patient is initially agitated and uncooperative. He is crying out at times. He will not answer questions appropriately SKIN: Focused skin assessment warm/dry. HEAD: Atraumatic. Normocephalic. EYES: Pupils midposition equal and round. No scleral icterus. No injection or drainage. ENT: No nasal bleeding or discharge. Mucous membranes pink and moist. NECK: Trachea midline. No JVD. CARDIOVASCULAR: Regular rate and rhythm. No murmur appreciated. RESPIRATORY: No accessory muscle use. Clear to auscultation. Breath sounds equal bilaterally. GASTROINTESTINAL: Abdomen soft, non-tender, nondistended. Hepatic and splenic margins not palpable. MUSCULOSKELETAL: No obvious deformities. No clubbing. No cyanosis. No edema. NEUROLOGICAL: Awake and alert. No obvious cranial nerve deficits. Motor grossly within normal limits. Limited speech. PSYCHIATRIC: Agitated confused Data Data Last Documented VS Vital Signs Date Time Temp Pulse Resp B/P (MAP) Pulse Ox O2 Delivery O2 Flow Rate FiO2 01/02/18 13:46 95 16 155/70 (98) 95 Room Air 01/02/18 10:05 97.3 Orders Orders Electrocardiogram (01/02/18 09:53) Complete Blood Count With Diff (01/02/18 09:53) Comprehensive Metabolic Panel (01/02/18 09:53) Urinalysis - C+S If Indicated (01/02/18 09:53) Ct Brain W/O Iv Contrast(Rout) (01/02/18 09:53) Iv Access Insert/Monitor (01/02/18 09:53) Ecg Monitoring (01/02/18 09:53) Oximetry (01/02/18 09:53) Sodium Chloride 0.9% Flush (Ns Flush) (01/02/18 10:00) Drug Screen, Random Urine (01/02/18 09:53) Alcohol (Ethanol) (01/02/18 09:53) Tylenol (Acetaminophen) (01/02/18 09:53) Lorazepam Inj (Ativan Inj) (01/02/18 10:30) Sodium Chlor 0.9% 1000 Ml Inj (Ns 1000 M (01/02/18 13:45) Sodium Chlor 0.9% 1000 Ml Inj (Ns 1000 M (01/02/18 14:00) Labs Laboratory Tests Test 01/02/18 10:30 01/02/18 10:40 Urine Collection Type CLEAN CATCH Urine Color YELLOW Urine Turbidity CLEAR Urine pH 6.5 Urine Specific [place] LESS/EQUAL 1.005 Urine Protein NEG mg/dL Urine Glucose (UA) NEG mg/dL Urine Ketones NEG mg/dL Urine Occult Blood NEG Urine Nitrite NEG Urine Bilirubin NEG Urine Urobilinogen 0.2 MG/DL Urine Leukocyte Esterase NEG Urine RBC 0-3 /hpf Urine Squamous Epithelial Cells 0-5 /hpf Microscopic Urinalysis Comment CULT NOT INDICATED Urine Collection Time 10:30 Urine Opiates Screen POS Urine Barbiturates Screen NEG Urine Amphetamines Screen POS Urine Benzodiazepines Screen NEG Urine Cocaine Screen POS Urine Cannabinoids Screen NEG White Blood Count 12.0 TH/MM3 Red Blood Count 5.51 MIL/MM3 Hemoglobin 14.4 GM/DL Hematocrit 45.1 % Mean Corpuscular Volume 81.9 FL Mean Corpuscular Hemoglobin 26.1 PG Mean Corpuscular Hemoglobin Concent 31.9 % Red Cell Distribution Width 14.2 % Platelet Count 270 TH/MM3 Mean Platelet Volume 8.9 FL Neutrophils (%) (Auto) 77.5 % Lymphocytes (%) (Auto) 14.3 % Monocytes (%) (Auto) 4.3 % Eosinophils (%) (Auto) 1.8 % Basophils (%) (Auto) 2.1 % Neutrophils # (Auto) 9.3 TH/MM3 Lymphocytes # (Auto) 1.7 TH/MM3 Monocytes # (Auto) 0.5 TH/MM3 Eosinophils # (Auto) 0.2 TH/MM3 Basophils # (Auto) 0.3 TH/MM3 CBC Comment DIFF FINAL Differential Comment Blood Urea Nitrogen 16 MG/DL Creatinine 1.10 MG/DL Random Glucose 97 MG/DL Total Protein 7.8 GM/DL Albumin 3.9 GM/DL Calcium Level 9.2 MG/DL Alkaline Phosphatase 84 U/L Aspartate Amino Transf (AST/SGOT) 68 U/L Alanine Aminotransferase (ALT/SGPT) 137 U/L Total Bilirubin 0.4 MG/DL Sodium Level 138 MEQ/L Potassium Level 3.9 MEQ/L Chloride Level 103 MEQ/L Carbon Dioxide Level 27.8 MEQ/L Anion Gap 7 MEQ/L Estimat Glomerular Filtration Rate 82 ML/MIN Ethyl Alcohol Level LESS THAN 3 MG/DL MDM Medical Decision Making Medical Screen Exam Complete: Yes Emergency Medical Condition: Yes Medical Record Reviewed: Yes Differential Diagnosis Differential includes polysubstance abuse, altered mental status, Narrative Course Toxicology screen is positive for cocaine, opioids and amphetamines. Patient was not cooperative and was thrashing around. He has been given Ativan 2 mg IM for sedation with this he has settled down considerably. Patient has been sleeping fairly soundly. He has been reassessed on several occasions and is not cooperative. He is a bit lethargic. CT scan of the brain is negative. Patient denies any thoughts of hurting himself. This was recreational drug use. I do not think the patient would benefit from psychiatric evaluation. He would certainly benefit from detox which he has been to recently Diagnosis Primary Impression: Recreational drug use Scripts No Active Prescriptions or Reported Meds Disposition: 01 DISCHARGE HOME Condition: Stable Josh Mohan MD January 02, 2018 09:56
[2018-01-02] MEDS ORDERED: SODIUM CHLORIDE 0.9% FLUSH 10 ML FLUSH IVF PRN (10:00)
[2018-01-02] MEDS ORDERED: LORazepam 2 MG/ML VIAL IM ONE (10:30)
[2018-01-02 10:43] LABS: BILIRUBIN, URINE NEG (NEG); BLOOD, URINE NEG (NEG); GLUCOSE,URINE NEG (NEG); KETONE, URINE NEG (NEG); NITRITE,URINE NEG (NEG); PH, URINE 6.5 (5.0-8.5); URINE COLOR YELLOW (YELLW/STRAW); URINE LEUKOCYTE ESTERASE NEG (NEG)
[2018-01-02 10:52] LABS: RBC, URINE 0-3 /hpf (0-3); SQUAMOUS EPITHELIAL CELL URINE 0-5 /hpf (0-5)
[2018-01-02 10:57] LABS: AUTOMATED NEUTROPHIL # 9.3 TH/MM3 (1.8-7.7); BASOPHIL # 0.3 TH/MM3 (0-0.2); BASOPHIL % 2.1 % (0.0-2.0); EOSINOPHIL # 0.2 TH/MM3 (0-0.4); EOSINOPHIL % 1.8 % (0.0-4.0); HEMATOCRIT 45.1 % (39.0-51.0); HEMOGLOBIN 14.4 GM/DL (13.0-17.0); LYMPH % 14.3 % (9.0-44.0); LYMPHOCYTE # 1.7 TH/MM3 (1.0-4.8); MEAN CELL VOLUME 81.9 FL (80.0-100.0); MEAN CORPUSCULAR HEMOGLOBIN 26.1 PG (27.0-34.0); MEAN CORPUSCULAR HGB CONC 31.9 % (32.0-36.0); MEAN PLATELET VOLUME 8.9 FL (7.0-11.0); MONO % 4.3 % (0.0-8.0); MONOCYTE # 0.5 TH/MM3 (0-0.9); NEUT % 77.5 % (16.0-70.0); PLATELET COUNT 270 TH/MM3 (150-450); RED BLOOD COUNT 5.51 MIL/MM3 (4.50-5.90); RED CELL DISTRIBUTION WIDTH 14.2 % (11.6-17.2)
[2018-01-02 10:59] LABS: CHLORIDE 103 MEQ/L (98-107); SODIUM (NA) 138 MEQ/L (136-145)
[2018-01-02 11:02] LABS: CALCIUM 9.2 MG/DL (8.5-10.1)
[2018-01-02 11:03] LABS: ALBUMIN 3.9 GM/DL (3.4-5.0); BICARBONATE 27.8 MEQ/L (21.0-32.0); BLOOD UREA NITROGEN 16 MG/DL (7-18); GLUCOSE,RANDOM 97 MG/DL (74-106)
[2018-01-02 11:06] LABS: ALT (GPT) 137 U/L (12-78); AST (GOT) 68 U/L (15-37); GLOMERULAR FILTRATION RATE 82 ML/MIN (>89)
[2018-01-02 11:08] LABS: TOTAL BILIRUBIN ADULT 0.4 MG/DL (0.2-1.0); TOTAL PROTEIN 7.8 GM/DL (6.4-8.2)
[2018-01-02 11:09] LABS: ALKALINE PHOSPHATASE 84 U/L (45-117)
--- NOTE | 2018-01-02 13:06 | RADRPT ---
EXAM DATE/TIME: 01/02/2018 12:46 [facility] COMPARISON: No previous studies available for comparison. INDICATIONS : Altered mental status. Possible overdose. RADIATION DOSE: 41.18 CTDIvol (mGy) MEDICAL HISTORY : None SURGICAL HISTORY : None. ENCOUNTER: Initial ACUITY: 1 day PAIN SCALE: 0/10 LOCATION: cranial TECHNIQUE: Multiple contiguous axial images were obtained of the head. Using automated exposure control and adj ustment of the mA and/or kV according to patient size, radiation dose was kept as low as reasonably a chievable to obtain optimal diagnostic quality images. DICOM format image data is available electro nically for review and comparison. FINDINGS: CEREBRUM: The ventricles are normal for age. No evidence of midline shift, mass lesion, hemorrhage or acute in farction. No extra-axial fluid collections are seen. POSTERIOR FOSSA: The cerebellum and brainstem are intact. The 4th ventricle is midline. The cerebellopontine angle i s unremarkable. EXTRACRANIAL: The visualized portion of the orbits is intact. SKULL: The calvaria is intact. No evidence of skull fracture. CONCLUSION: 1. No acute intercranial abnormality. Ian Silva MD on January 02, 2018 at 13:02 Board Certified Radiologist. This report was verified electronically.
[2018-01-02] MEDS ORDERED: SODIUM CHLOR 0.9% 1000 ML INJ 1,000 ML IV ONE ×2 (13:45→14:00)
--- NOTE | 2018-01-02 15:28 | PD ---
Physical Exam Date Seen by Provider: January 02, 2018 Time Seen by Provider: 15:26 Narrative The patient is a 27-year-old male was initially admitted by the previous physician, Dr. Larsen. Please refer to the initial history, physical, diagnostic evaluation, and treatment modality plan. The patient was signed out at 3 PM with continued observation of the patient after he was noted to have polysubstance ingestion including heroin, cocaine, and methamphetamines. Patient was agitated upon arrival received Ativan. At sign out it was agreed the patient be discharged home once he is able to ambulate to the bathroom, maintain oral intake, and baseline is back to normal. Data Data Last Documented VS Vital Signs Date Time Temp Pulse Resp B/P (MAP) Pulse Ox O2 Delivery O2 Flow Rate FiO2 01/02/18 17:46 81 16 140/61 (87) 97 Room Air 01/02/18 10:05 97.3 Orders Orders Electrocardiogram (01/02/18 09:53) Complete Blood Count With Diff (01/02/18 09:53) Comprehensive Metabolic Panel (01/02/18 09:53) Urinalysis - C+S If Indicated (01/02/18 09:53) Ct Brain W/O Iv Contrast(Rout) (01/02/18 09:53) Iv Access Insert/Monitor (01/02/18 09:53) Ecg Monitoring (01/02/18 09:53) Oximetry (01/02/18 09:53) Sodium Chloride 0.9% Flush (Ns Flush) (01/02/18 10:00) Drug Screen, Random Urine (01/02/18 09:53) Alcohol (Ethanol) (01/02/18 09:53) Lorazepam Inj (Ativan Inj) (01/02/18 10:30) Sodium Chlor 0.9% 1000 Ml Inj (Ns 1000 M (01/02/18 13:45) Sodium Chlor 0.9% 1000 Ml Inj (Ns 1000 M (01/02/18 14:00) Labs Laboratory Tests Test 01/02/18 10:30 01/02/18 10:40 Urine Collection Type CLEAN CATCH Urine Color YELLOW Urine Turbidity CLEAR Urine pH 6.5 Urine Specific [place] LESS/EQUAL 1.005 Urine Protein NEG mg/dL Urine Glucose (UA) NEG mg/dL Urine Ketones NEG mg/dL Urine Occult Blood NEG Urine Nitrite NEG Urine Bilirubin NEG Urine Urobilinogen 0.2 MG/DL Urine Leukocyte Esterase NEG Urine RBC 0-3 /hpf Urine Squamous Epithelial Cells 0-5 /hpf Microscopic Urinalysis Comment CULT NOT INDICATED Urine Collection Time 10:30 Urine Opiates Screen POS Urine Barbiturates Screen NEG Urine Amphetamines Screen POS Urine Benzodiazepines Screen NEG Urine Cocaine Screen POS Urine Cannabinoids Screen NEG White Blood Count 12.0 TH/MM3 Red Blood Count 5.51 MIL/MM3 Hemoglobin 14.4 GM/DL Hematocrit 45.1 % Mean Corpuscular Volume 81.9 FL Mean Corpuscular Hemoglobin 26.1 PG Mean Corpuscular Hemoglobin Concent 31.9 % Red Cell Distribution Width 14.2 % Platelet Count 270 TH/MM3 Mean Platelet Volume 8.9 FL Neutrophils (%) (Auto) 77.5 % Lymphocytes (%) (Auto) 14.3 % Monocytes (%) (Auto) 4.3 % Eosinophils (%) (Auto) 1.8 % Basophils (%) (Auto) 2.1 % Neutrophils # (Auto) 9.3 TH/MM3 Lymphocytes # (Auto) 1.7 TH/MM3 Monocytes # (Auto) 0.5 TH/MM3 Eosinophils # (Auto) 0.2 TH/MM3 Basophils # (Auto) 0.3 TH/MM3 CBC Comment DIFF FINAL Differential Comment Blood Urea Nitrogen 16 MG/DL Creatinine 1.10 MG/DL Random Glucose 97 MG/DL Total Protein 7.8 GM/DL Albumin 3.9 GM/DL Calcium Level 9.2 MG/DL Alkaline Phosphatase 84 U/L Aspartate Amino Transf (AST/SGOT) 68 U/L Alanine Aminotransferase (ALT/SGPT) 137 U/L Total Bilirubin 0.4 MG/DL Sodium Level 138 MEQ/L Potassium Level 3.9 MEQ/L Chloride Level 103 MEQ/L Carbon Dioxide Level 27.8 MEQ/L Anion Gap 7 MEQ/L Estimat Glomerular Filtration Rate 82 ML/MIN Ethyl Alcohol Level LESS THAN 3 MG/DL [facility] Medical Record Reviewed: Yes Supervised Visit with CHUCK: No Interpretation(s) Last Impressions Head CT 01/02/18 0953 Signed Impressions: Service Date/Time: Tuesday, January 02, 2018 12:46 - CONCLUSION: 1. No acute intercranial abnormality. Ian Silva MD Laboratory Tests Test 01/02/18 10:30 01/02/18 10:40 Urine Collection Type CLEAN CATCH Urine Color YELLOW Urine Turbidity CLEAR Urine pH 6.5 Urine Specific [place] LESS/EQUAL 1.005 Urine Protein NEG mg/dL Urine Glucose (UA) NEG mg/dL Urine Ketones NEG mg/dL Urine Occult Blood NEG Urine Nitrite NEG Urine Bilirubin NEG Urine Urobilinogen 0.2 MG/DL Urine Leukocyte Esterase NEG Urine RBC 0-3 /hpf Urine Squamous Epithelial Cells 0-5 /hpf Microscopic Urinalysis Comment CULT NOT INDICATED Urine Collection Time 10:30 Urine Opiates Screen POS Urine Barbiturates Screen NEG Urine Amphetamines Screen POS Urine Benzodiazepines Screen NEG Urine Cocaine Screen POS Urine Cannabinoids Screen NEG White Blood Count 12.0 TH/MM3 Red Blood Count 5.51 MIL/MM3 Hemoglobin 14.4 GM/DL Hematocrit 45.1 % Mean Corpuscular Volume 81.9 FL Mean Corpuscular Hemoglobin 26.1 PG Mean Corpuscular Hemoglobin Concent 31.9 % Red Cell Distribution Width 14.2 % Platelet Count 270 TH/MM3 Mean Platelet Volume 8.9 FL Neutrophils (%) (Auto) 77.5 % Lymphocytes (%) (Auto) 14.3 % Monocytes (%) (Auto) 4.3 % Eosinophils (%) (Auto) 1.8 % Basophils (%) (Auto) 2.1 % Neutrophils # (Auto) 9.3 TH/MM3 Lymphocytes # (Auto) 1.7 TH/MM3 Monocytes # (Auto) 0.5 TH/MM3 Eosinophils # (Auto) 0.2 TH/MM3 Basophils # (Auto) 0.3 TH/MM3 CBC Comment DIFF FINAL Differential Comment Blood Urea Nitrogen 16 MG/DL Creatinine 1.10 MG/DL Random Glucose 97 MG/DL Total Protein 7.8 GM/DL Albumin 3.9 GM/DL Calcium Level 9.2 MG/DL Alkaline Phosphatase 84 U/L Aspartate Amino Transf (AST/SGOT) 68 U/L Alanine Aminotransferase (ALT/SGPT) 137 U/L Total Bilirubin 0.4 MG/DL Sodium Level 138 MEQ/L Potassium Level 3.9 MEQ/L Chloride Level 103 MEQ/L Carbon Dioxide Level 27.8 MEQ/L Anion Gap 7 MEQ/L Estimat Glomerular Filtration Rate 82 ML/MIN Ethyl Alcohol Level LESS THAN 3 MG/DL Differential Diagnosis Differential diagnosis includes recreational drug use, polysubstance abuse, polydrug ingestion, delirium, intracranial hemorrhage, encephalopathy. Narrative Course The patient was initially evaluated by the previous physician, Dr. Larsen. Please refer to the initial history, physical, diagnostic evaluation, and treatment modality plan. The patient was signed out at 3 PM with continued observation of the patient's mental status. Patient had a negative CT of the brain, did have a tox screen was positive for opiates, cocaine, and amphetamines. The patient did receive benzodiazepines in the emergency department for agitation upon arrival. It was agreed that the patient will be discharged once he has returned to baseline, is ambulatory, and is able to maintain oral intake. The patient was reevaluated at 6:45 PM, he was able to stand upright and urinate. He will call for a ride. He will be monitored until his ride is available to pick him up at the emergency department. Diagnosis Primary Impression: Recreational drug use Patient Instructions: General Instructions Additional Instruction: Decreased recreational drug use. Follow-up with your primary physician. Return if symptoms worsen or progress. Scripts No Active Prescriptions or Reported Meds Disposition: 01 DISCHARGE HOME Condition: Stable Mathew Cherry MD January 02, 2018 15:28
--- NOTE | 2018-01-02 22:11 | EKG ---
Date Performed: 01/02/2018 Time Performed: 09:53:21 PTAGE: 27 years EKG: SINUS TACHYCARDIA WITH SHORT DC INTERVAL POSSIBLE LEFT ATRIAL ENLARGEMENT ABNORMAL RHYTHM E CG INTERPRETATION BASED ON A DEFAULT AGE OF 40 YEARS PREVIOUS TRACING : 01/22/2017 00.08 Since the previous tracing, no significant change not ed DOCTOR: Isca Guzman Interpretating Date/Time 01/02/2018 22:09:32
== END 2018-01-02 19:47 | disposition home or self-care (01) ==
LOC: PHED 09:48
DX: F11.90 Opioid use, unspecified, uncomplicated (principal); F14.90 Cocaine use, unspecified, uncomplicated; F15.90 Other stimulant use, unspecified, uncomplicated; R53.83 Other fatigue; R00.0 Tachycardia, unspecified; R94.31 Abnormal electrocardiogram [ECG] [EKG]; F17.200 Nicotine dependence, unspecified, uncomplicated; Z88.0 Allergy status to penicillin
CPT/HCPCS: 70450; 80053; 80307; 81001; 85025; 93005; 96360; 96372; 99285; J2060; J7030